=== PATIENT | male | born 1985 | race Caucasian/White ===

== ENCOUNTER 2018-08-13 14:57 | Outpatient (CLI) ==
[2018-08-13 15:24] VITALS: BMI 24.6
== END 2018-08-13 15:01 | disposition critical access hospital (66) ==
LOC: AMBL 14:57
PROVIDERS: ATTEND Internal Medicine
DX: R40.20 Unspecified coma (principal); T65.91XA Toxic effect of unspecified substance, accidental (unintentional), initial encounter; R41.0 Disorientation, unspecified; R06.89 Other abnormalities of breathing; R47.81 Slurred speech

== ENCOUNTER 2018-08-13 15:11 | Emergency (ER) ==
[2018-08-13] MEDS ORDERED: SODIUM CHLORIDE 1,000 ML IV STA (15:20)
[2018-08-13 15:24] VITALS: BMI 24.6
[2018-08-13] MEDS ORDERED: NARCAN IVP STA (15:30)
--- NOTE | 2018-08-13 16:00 | DI ---
Exam: Single view of the chest. Comparison: None available. Reason for exam: Cough. FINDINGS: No pneumothorax, pleural effusion, or focal consolidation. The cardiac silhouette is not enlarged. The imaged osseous structures appear grossly unremarkable without acute fracture. Impression: No acute cardiopulmonary process
--- NOTE | 2018-08-13 16:36 | ED.PDOC ---
General ED Provider: Dr. YARIEL MCKOY Chief Complaint: Overdose Stated Complaint: arrived lethargic [place] by EMS WHO STATED PT RESPONDED TO NARCAN BUT WOULD GET LETHARGIC AFTER NARCAN WEARS OFF . 2 TABLET OF FLEXRIL AND AND ADDITIONAL WHITE PILL WAS RECOVERED ON THE PT. Time Seen by Physician: 15:14 Mode of Arrival: Ambulance Information Source: Patient Exam Limitations: No limitations Primary Care Provider: FRANCHESCA WARD Nursing and Triage Documentation Reviewed and Agree: No Does patient meet sepsis criteria?: No If yes, has appropriate treatment been initiated?: No System Inflammatory Response Syndrome: Not Applicable Sepsis Protocol: For patient's 13 years and over: Temp is 96.8 and below OR 101 and greater Pulse >90 BPM Resp >20/minute Acutely Altered Mental Status Are patient's symptoms suggestive of a new infection, such as: -Pneumonia -Skin, Soft Tissue -Endocarditis -UTI -Bone, Joint Infection -Implantable Device -Acute Abdominal Infection -Wound Infection -Meningitis -Blood Stream Catheter Infection -Unknown Review of Systems - Review Of Systems Constitutional: Reports: No symptoms Eyes: Reports: No symptoms Ears, Nose, Mouth, Throat: Reports: No symptoms Respiratory: Reports: No symptoms Cardiac: Reports: No symptoms GI: Reports: No symptoms : Reports: No symptoms Musculoskeletal: Reports: No symptoms Skin: Reports: No symptoms Neurological: Reports: No symptoms Endocrine: Reports: No symptoms Hematologic/Lymphatic: Reports: No symptoms All Other Systems: Reviewed and Negative Past Medical History - Past Medical History Previously Healthy: Yes Endocrine: Reports: None Cardiovascular: Reports: None Respiratory: Reports: None Hematological: Reports: None Gastrointestinal: Reports: None Genitourinary: Reports: None Neuro/Psych: Reports: None Musculoskeletal: Reports: None Cancer: Reports: None - Surgical History General Surgical History: Reports: None - Family History Family History: Reports: None - Social History Smoking Status: Current every day smoker, Light tobacco smoker Hx Substance Use: Yes (Klonopin found) Alcohol Screening: None Physical Exam - Physical Exam Appearance: Well-appearing, No pain distress, Well-nourished Eyes: ANALISA, EOMI, Conjunctiva clear ENT: Ears normal, Nose normal, Oropharynx normal Respiratory: Airway patent, Breath sounds clear, Breath sounds equal, Respirations nonlabored Cardiovascular: RRR, Pulses normal, No rub, No murmur GI/: Soft, Nontender, No masses, Bowel sounds normal, No Organomegaly Musculoskeletal: Normal strength, ROM intact, No edema, No calf tenderness Skin: Warm, Dry, Normal color Neurological: Sensation intact, Motor intact, Reflexes intact, Cranial nerves intact, Alert, Oriented Psychiatric: Affect appropriate, Mood appropriate Re-Evaluation - Re-Evaluation Time of Re-Evaluation: 16:00 Status: Improved Vital Signs Stable: Yes Appearance: NAD Lungs: Clear Skin: Warm and Dry Neuro: Alert and Oriented X3 CV: RRR - Re-Evaluation Time of Re-Evaluation: 17:09 Status: Improved Vital Signs Stable: Yes Appearance: NAD Skin: Warm and Dry Neuro: Alert and Oriented X3 CV: RRR Physician Notification - Case Discussed Physician Notified: KAPIL Time of Notification: 17:08 Admit/Transition Orders Entered by ED Provider: Yes Admit To: Inpatient Critical Care Note - Critical Care Note Total Time (mins): 0 Course - Course Hematology/Chemistry: 08/13/18 15:29 08/13/18 15:29 Orders, Labs, Meds: Lab Review 08/13/18 08/13/18 08/13/18 15:29 15:29 15:29 WBC 5.34 RBC 5.14 Hgb 15.4 Hct 43.1 MCV 83.9 MCH 30.0 MCHC 35.7 H RDW Coeff of Monik 14.2 Plt Count 185 Immature Gran % (Auto) 0.2 Neut % (Auto) 60.7 Lymph % (Auto) 26.0 [place] % (Auto) 9.9 Eos % (Auto) 2.6 Baso % (Auto) 0.6 Immature Gran # (Auto) 0.0 Neut # (Auto) 3.2 Lymph # (Auto) 1.4 [place] # (Auto) 0.5 Eos # (Auto) 0.1 Baso # (Auto) 0.0 PT 11.0 INR 1.10 APTT 31.8 Sodium 141.8 Potassium 3.88 Chloride 102.3 Carbon Dioxide 27.2 Anion Gap 16.18 BUN 12.1 Creatinine 1.12 H Estimated GFR (MDRD) 75.00 BUN/Creatinine Ratio 10.80 Glucose 58.1 L Lactic Acid Calcium 9.22 Total Bilirubin 1.42 H AST 60.5 H ALT 29.7 Alkaline Phosphatase 84.2 Total Creatine Kinase 1075.7 H CK-MB (CK-2) 6.290 H* CK-MB (CK-2) % 0.5800 Troponin I < 0.012 Total Protein 7.25 Albumin 4.37 Globulin 2.88 Albumin/Globulin Ratio 1.51 Procalcitonin 08/13/18 08/13/18 15:29 15:29 WBC RBC Hgb Hct MCV MCH MCHC RDW Coeff of Monik Plt Count Immature Gran % (Auto) Neut % (Auto) Lymph % (Auto) [place] % (Auto) Eos % (Auto) Baso % (Auto) Immature Gran # (Auto) Neut # (Auto) Lymph # (Auto) [place] # (Auto) Eos # (Auto) Baso # (Auto) PT INR APTT Sodium Potassium Chloride Carbon Dioxide Anion Gap BUN Creatinine Estimated GFR (MDRD) BUN/Creatinine Ratio Glucose Lactic Acid 0.79 Calcium Total Bilirubin AST ALT Alkaline Phosphatase Total Creatine Kinase CK-MB (CK-2) CK-MB (CK-2) % Troponin I Total Protein Albumin Globulin Albumin/Globulin Ratio Procalcitonin < 0.05 Orders Category Date Time Status EKG-(ED ONLY) Stat CARDIO 08/13/18 15:17 Completed ED IV/MEDIPORT/POWERPORT .ONCE EMERGENCY 08/13/18 15:17 Active BLOOD CULTURE (ED ONLY) Stat LAB 08/13/18 15:29 Received CBC W/ AUTO DIFF Stat LAB 08/13/18 15:29 Completed COMPREHENSIVE METABOLIC PANEL Stat LAB 08/13/18 15:29 Completed CREATINE KINASE Stat LAB 08/13/18 15:29 Completed LACTIC ACID Stat LAB 08/13/18 15:29 Completed PARTIAL THROMBOPLASTIN TIME Stat LAB 08/13/18 15:29 Completed PROCALCITONIN Stat LAB 08/13/18 15:29 Completed PT WITH INR Stat LAB 08/13/18 15:29 Completed TROPONIN I Stat LAB 08/13/18 15:29 Completed 0.9 % Sodium Chloride [Saline Flush] MEDS 08/13/18 15:17 Active 1 syr IVF PRN PRN Naloxone HCl [Narcan] MEDS 08/13/18 15:30 Discontinued 0.4 mg IVP ONCE STA Sodium Chloride 0.9% [Sodium Chloride] 1,000 ml MEDS 08/13/18 15:20 Discontinued IV BOLUS CHEST, 1V AP ONLY Stat RADS 08/13/18 15:[address] CERVICAL SPINE W/O CONTRAST Stat RADS 08/13/18 16:[address] HEAD W/O CONTRAST Stat RADS 08/13/18 16:03 Completed Medications Generic Name Dose Route Start Last Admin Trade Name Freq PRN Reason Stop Dose Admin Sodium Chloride 1 syr 08/13/18 15:17 08/13/18 15:47 Saline Flush IVF 1 syr PRN PRN Administration To flush IV Discontinued Medications Generic Name Dose Route Start Last Admin Trade Name Freq PRN Reason Stop Dose Admin Sodium Chloride 1,000 mls @ 1,000 mls/hr 08/13/18 15:20 08/13/18 15:47 Sodium Chloride IV 08/13/18 16:19 1,000 mls/hr BOLUS STA Administration Naloxone HCl 0.4 mg 08/13/18 15:30 08/13/18 15:46 Narcan IVP 08/13/18 15:31 0.4 mg ONCE STA Administration Vital Signs: Temp Pulse Resp BP Pulse Ox 08/13/18 15:13 97.6 F 67 16 120/84 97 Departure - Departure Time of Disposition: 16:37 Disposition: ADMITTED INPATIENT Discharge Problem: Altered mental status Qualifiers: Altered mental status type: unspecified Qualified Code(s): R41.82 - Altered mental status, unspecified Condition: Good Pt referred to PMD for follow-up: Yes IPMP verified?: No Allergies/Adverse Reactions: Allergies cefaclor [From [facility]] Adverse Reaction (Verified 05/25/14 13:08) Home Medications: Ambulatory Orders Anastrozole [Arimidex] 1 mg PO MOWEFR 02/22/14 Testosterone Cypionate [Depo-Testosterone] 200 mg IM WEEKLY 02/22/14 Buprenorphine HCl 8 mg SL BID 03/11/14
--- NOTE | 2018-08-13 16:39 | CT ---
Exam: CT cervical spine without intravenous contrast. Comparison: MRI performed 08/07/2013. Reason for exam: Injury 1 week ago. FINDINGS: No acute fracture or listhesis. Cystic changes are seen in the C2, C4 and C5 vertebral ema dies with a typically benign appearance. No vertebral body height loss is seen. The dens appears intact. There is a normal appearing cervica l lordotic curve. The prevertebral soft tissues are within normal limits. Impression: 1. No acute fracture or listhesis in the cervical spine. 2. Cystic changes are seen in the C2,C4 and C5 vertebral bodies with a typically benign appearance.
--- NOTE | 2018-08-13 16:41 | CT ---
EXAM: CT Head HISTORY: Injury a few days ago COMPARISON: None TECHNIQUE: CT head performed without contrast FINDINGS: There is no mass effect, midline shift, or intracranial hemmorhage. [place] white differenti ation is preserved. There is no extra-axial collection. The ventricles, sulci, and basal cisterns a re patent and symmetric. There is no depressed calvarial fracture. The mastoid air cells are clear. There is mucosal thickening of the paranasal sinuses that is severe in the left greater than right m axillary sinuses with frothy mucosal thickening left maxillary sinus, likely [id number] sinusit is. IMPRESSION: 1. No acute intracranial abnormality. 2. Severe sinusitis, likely [id number].
[2018-08-13] MEDS ORDERED: SODIUM CHLORIDE 2,000 ML IV SCH (17:30)
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
[2018-08-13] MEDS ORDERED: ATIVAN IVP STA (20:43)
[2018-08-13] MEDS ORDERED: GEODON IM STA ×2 (20:43→20:47)
[2018-08-13] MEDS ORDERED: SODIUM CHLORIDE 1,000 ML IV SCH (22:00)
[2018-08-13] MEDS ORDERED: LOVENOX SUBCUT SCH (22:00)
[2018-08-14] MEDS ORDERED: LACTATED RINGERS 1,000 ML IV STA ×2 (03:18→03:49)
[2018-08-14 03:28] VITALS: BP 125/63; TEMP 97.3
== END 2018-08-14 11:25 | disposition home or self-care (01) ==
LOC: ED 15:11 → SCU 17:46 → UNDOADMIN 17:46 → UNDODISIN 18:48 → ED 08-14 11:25
DX: R41.82 Altered mental status, unspecified (principal); F19.10 Other psychoactive substance abuse, uncomplicated; R53.83 Other fatigue; R79.89 Other specified abnormal findings of blood chemistry; F17.210 Nicotine dependence, cigarettes, uncomplicated
CPT/HCPCS: 36415; 80053; 80306; 81001; 82550; 82553; 83605; 84145; 84484; 85025; 85610; 85730; 87040; 93005; 93010; 96361; 96372; 96374; 99284